=== PATIENT | female | born 1935 | race Two or more races ===

== ENCOUNTER → 2017-01-09 | Outpatient (REF) | payer MEDICARE, OTHER | LOC: M LAB REF 13:22 | PROVIDERS: ATTEND Nurse Practitioner Adult Health | DX: I48.2 Chronic atrial fibrillation (principal) ==

== ENCOUNTER → 2017-06-26 | Outpatient (CLI) | payer MEDICARE, OTHER | LOC: M WUC 11:50 | DX: S60.222A Contusion of left hand, initial encounter (principal); X58.XXXA Exposure to other specified factors, initial encounter; Y92.89 Other specified places as the place of occurrence of the external cause; M19.042 Primary osteoarthritis, left hand | CPT/HCPCS: 73110 ==

== ENCOUNTER → 2017-08-27 | Outpatient (REF) | payer MEDICARE, OTHER ==
[2017-08-27 13:06] LABS: PHOSPHORUS LEVEL 2.8 MG/DL (2.5-4.9)
[2017-08-27 14:00] LABS: DIGOXIN LEVEL 2.9 NG/ML (0.5-2.0)
== END ==
LOC: M LAB REF 12:03
DX: I50.32 Chronic diastolic (congestive) heart failure (principal); I48.2 Chronic atrial fibrillation; Z79.899 Other long term (current) drug therapy
CPT/HCPCS: 80162

== ENCOUNTER 2018-01-09 02:37 | Inpatient (IN) | payer MEDICARE, OTHER ==
[2018-01-09] MEDS: ACETAMINOPHEN 325 MG TAB PO (04:21)
[2018-01-09 06:37] LABS: BASO % 0.4 % (0.0-1.0); EOS # 0.2 10^3/uL (0.0-0.50); EOS % 1.6 % (0.0-3.0); HEMATOCRIT 37.2 % (36.0-47.0); HEMOGLOBIN 12.6 g/dl (12.0-15.5); IMMATURE GRANULOCYTE % 0.5 % (0-3.0); LYMPH # 1.1 10^3/uL (1.5-4.5); LYMPH % 10.3 % (24.0-44.0); MEAN CORPUSCULAR HGB CONC 33.9 g/dl (32.0-36.5); MEAN CORPUSCULAR VOLUME 97.4 fl (80.0-96.0); MONO # 0.9 10^3/uL (0.0-0.8); MONO % 8.2 % (0.0-5.0); NEUTROPHILS # 8.2 10^3/uL (1.8-7.7); PLATELET COUNT, AUTOMATED 223 10^3/uL (150-450); RED BLOOD COUNT 3.82 10^6/uL (4.00-5.40); RED CELL DISTRIBUTION WIDTH 13.2 % (11.5-14.5); WHITE BLOOD COUNT 10.3 10^3/uL (4.0-10.0)
[2018-01-09 06:50] LABS: ANION GAP 8 MEQ/L (8-16); BLOOD UREA NITROGEN 23 MG/DL (7-18); CALCIUM LEVEL 8.8 MG/DL (8.8-10.2); CARBON DIOXIDE LEVEL 25 MEQ/L (21-32); CHLORIDE LEVEL 108 MEQ/L (98-107); CREATININE FOR GFR 1.12 MG/DL (0.55-1.30); GLOMERULAR FILTRATION RATE 49.6 (>32); GLUCOSE, FASTING 129 MG/DL (70-100); POTASSIUM SERUM 4.4 MEQ/L (3.5-5.1); SODIUM LEVEL 141 MEQ/L (136-145)
[2018-01-09 06:51] LABS: INR 3.43; PROTHROMBIN TIME 35.3 SECONDS (12.1-14.4)
[2018-01-09 06:52] LABS: PARTIAL THROMBOPLASTIN TIME 68.9 SECONDS (25.4-37.6)
[2018-01-09] MEDS ORDERED: ONDANSETRON 4MG/2ML VIAL (J2405) IV (08:30)
[2018-01-09] MEDS ORDERED: IPRATROPIUM 0.5MG/ALBUTEROL 2.5MG INH SOL UD 3ML (DUONEB)(J7620) NEB (08:30)
[2018-01-09] MEDS: NS 1,000 ML IV (10:33)
[2018-01-09] MEDS: METOPROLOL SUCC (TopROL XL) 50MG **XL** TAB PO (10:34)
[2018-01-09] MEDS: PHYTONADIONE 5 MG TAB PO ×2 (10:34→16:37)
[2018-01-09] MEDS: DIGOXIN 0.25 MG TAB PO (10:34)
[2018-01-09] MEDS: FUROSEMIDE 40 MG TAB PO (10:35)
[2018-01-09] MEDS: OMEPRAZOLE 20 MG CAP PO (10:35)
[2018-01-09] MEDS: PERCOCET 5MG/325MG TAB PO ×2 (10:36→19:05)
[2018-01-09] MEDS: MAGNESIUM CHLORIDE 64 MG TABCR (SLO MAG) PO ×2 (11:10→20:39)
[2018-01-09] MEDS: BRIMONIDINE 0.15% OPHTH SOLN 5 ML OU ×2 (11:10→20:39)
[2018-01-09 12:12] LABS: ABO/RH TYPE MANUAL 1 1
[2018-01-09 16:14] LABS: INR 2.28; PROTHROMBIN TIME 25.6 SECONDS (12.1-14.4)
[2018-01-09 16:15] LABS: PARTIAL THROMBOPLASTIN TIME 53.5 SECONDS (25.4-37.6)
[2018-01-09] MEDS: HEPARIN DRIP 25,000 UNITS in APPROPRIATE DILUENT 1 EA IV (16:38)
[2018-01-09] MEDS: MORPHINE 4 MG/ML 1ML VIAL/SYRINGE (J2270) IV (18:23)
[2018-01-09] MEDS: LISINOPRIL 5 MG TAB PO (20:39)
[2018-01-09] MEDS: SIMVASTATIN 40 MG TAB PO (20:39)
[2018-01-10] MEDS: NS 1,000 ML IV
[2018-01-10 00:04] LABS: PARTIAL THROMBOPLASTIN TIME > 240.0 SECONDS (25.4-37.6)
[2018-01-10] MEDS: PERCOCET 5MG/325MG TAB PO ×2 (05:38→14:23)
[2018-01-10 06:05] LABS: HEMATOCRIT 34.2 % (36.0-47.0); HEMOGLOBIN 11.2 g/dl (12.0-15.5); MEAN CORPUSCULAR HEMOGLOBIN 32.2 pg (27.0-33.0); MEAN CORPUSCULAR HGB CONC 32.7 g/dl (32.0-36.5); MEAN CORPUSCULAR VOLUME 98.3 fl (80.0-96.0); PLATELET COUNT, AUTOMATED 194 10^3/uL (150-450); RED BLOOD COUNT 3.48 10^6/uL (4.00-5.40); RED CELL DISTRIBUTION WIDTH 13.1 % (11.5-14.5); WHITE BLOOD COUNT 7.1 10^3/uL (4.0-10.0)
[2018-01-10 06:16] LABS: INR 1.73; PROTHROMBIN TIME 20.5 SECONDS (12.1-14.4)
[2018-01-10 06:18] LABS: ALBUMIN 3.3 GM/DL (3.2-5.2); ANION GAP 7 MEQ/L (8-16); BLOOD UREA NITROGEN 19 MG/DL (7-18); CALCIUM LEVEL 8.9 MG/DL (8.8-10.2); CARBON DIOXIDE LEVEL 28 MEQ/L (21-32); CHLORIDE LEVEL 106 MEQ/L (98-107); CREATININE FOR GFR 1.08 MG/DL (0.55-1.30); GLOMERULAR FILTRATION RATE 51.7 (>32); GLUCOSE, FASTING 126 MG/DL (70-100); PHOSPHORUS LEVEL 2.5 MG/DL (2.5-4.9); POTASSIUM SERUM 3.8 MEQ/L (3.5-5.1); SODIUM LEVEL 141 MEQ/L (136-145)
[2018-01-10 07:18] LABS: PARTIAL THROMBOPLASTIN TIME 140.7 SECONDS (25.4-37.6)
[2018-01-10] MEDS: METOPROLOL SUCC (TopROL XL) 50MG **XL** TAB PO (08:32)
[2018-01-10] MEDS: DIGOXIN 0.25 MG TAB PO (08:32)
[2018-01-10] MEDS: OMEPRAZOLE 20 MG CAP PO (08:32)
[2018-01-10] MEDS: BRIMONIDINE 0.15% OPHTH SOLN 5 ML OU ×2 (08:33→21:54)
[2018-01-10] MEDS: FUROSEMIDE 40 MG TAB PO (08:33)
[2018-01-10] MEDS: MAGNESIUM CHLORIDE 64 MG TABCR (SLO MAG) PO ×2 (10:03→21:51)
[2018-01-10 14:47] LABS: PARTIAL THROMBOPLASTIN TIME 73.3 SECONDS (25.4-37.6)
[2018-01-10] MEDS: LISINOPRIL 5 MG TAB PO (21:54)
[2018-01-10] MEDS: SIMVASTATIN 40 MG TAB PO (21:54)
[2018-01-10 21:57] LABS: PARTIAL THROMBOPLASTIN TIME 74.1 SECONDS (25.4-37.6)
[2018-01-10] MEDS: HEPARIN DRIP 25,000 UNITS in APPROPRIATE DILUENT 1 EA IV (22:40)
[2018-01-11] MEDS: PERCOCET 5MG/325MG TAB PO ×3 (03:52→21:36)
[2018-01-11 06:17] LABS: HEMOGLOBIN 10.5 g/dl (12.0-15.5); MEAN CORPUSCULAR HEMOGLOBIN 32.7 pg (27.0-33.0); MEAN CORPUSCULAR HGB CONC 33.9 g/dl (32.0-36.5); MEAN CORPUSCULAR VOLUME 96.6 fl (80.0-96.0); PLATELET COUNT, AUTOMATED 187 10^3/uL (150-450); RED BLOOD COUNT 3.21 10^6/uL (4.00-5.40); RED CELL DISTRIBUTION WIDTH 12.8 % (11.5-14.5); WHITE BLOOD COUNT 10.2 10^3/uL (4.0-10.0)
[2018-01-11 06:28] LABS: PROTHROMBIN TIME 16.4 SECONDS (12.1-14.4)
[2018-01-11 06:30] LABS: PARTIAL THROMBOPLASTIN TIME 73.6 SECONDS (25.4-37.6)
[2018-01-11 06:32] LABS: ANION GAP 9 MEQ/L (8-16); BLOOD UREA NITROGEN 20 MG/DL (7-18); CALCIUM LEVEL 8.9 MG/DL (8.8-10.2); CARBON DIOXIDE LEVEL 27 MEQ/L (21-32); CHLORIDE LEVEL 104 MEQ/L (98-107); CREATININE FOR GFR 1.19 MG/DL (0.55-1.30); GLOMERULAR FILTRATION RATE 46.2 (>32); GLUCOSE, FASTING 128 MG/DL (70-100); PHOSPHORUS LEVEL 2.6 MG/DL (2.5-4.9); POTASSIUM SERUM 3.8 MEQ/L (3.5-5.1); SODIUM LEVEL 140 MEQ/L (136-145)
[2018-01-11] MEDS: METOPROLOL SUCC (TopROL XL) 50MG **XL** TAB PO (09:29)
[2018-01-11] MEDS: OMEPRAZOLE 20 MG CAP PO (09:29)
[2018-01-11] MEDS: MAGNESIUM CHLORIDE 64 MG TABCR (SLO MAG) PO ×2 (09:29→21:35)
[2018-01-11] MEDS: FUROSEMIDE 40 MG TAB PO (09:30)
[2018-01-11] MEDS: DIGOXIN 0.25 MG TAB PO (09:31)
[2018-01-11] MEDS: BRIMONIDINE 0.15% OPHTH SOLN 5 ML OU ×2 (09:31→21:34)
[2018-01-11] MEDS: LISINOPRIL 5 MG TAB PO (21:34)
[2018-01-11] MEDS: SIMVASTATIN 40 MG TAB PO (21:34)
[2018-01-12 06:17] LABS: HEMATOCRIT 30.4 % (36.0-47.0); HEMOGLOBIN 10.2 g/dl (12.0-15.5); MEAN CORPUSCULAR HEMOGLOBIN 33.1 pg (27.0-33.0); MEAN CORPUSCULAR HGB CONC 33.6 g/dl (32.0-36.5); MEAN CORPUSCULAR VOLUME 98.7 fl (80.0-96.0); PLATELET COUNT, AUTOMATED 198 10^3/uL (150-450); RED BLOOD COUNT 3.08 10^6/uL (4.00-5.40)
[2018-01-12] MEDS: PERCOCET 5MG/325MG TAB PO (06:17)
[2018-01-12 06:31] LABS: INR 1.19; PROTHROMBIN TIME 15.3 SECONDS (12.1-14.4)
[2018-01-12 06:32] LABS: PARTIAL THROMBOPLASTIN TIME 77.5 SECONDS (25.4-37.6)
[2018-01-12 06:36] LABS: ALBUMIN 2.8 GM/DL (3.2-5.2); ANION GAP 6 MEQ/L (8-16); BLOOD UREA NITROGEN 26 MG/DL (7-18); CALCIUM LEVEL 8.9 MG/DL (8.8-10.2); CARBON DIOXIDE LEVEL 30 MEQ/L (21-32); CHLORIDE LEVEL 103 MEQ/L (98-107); CREATININE FOR GFR 1.37 MG/DL (0.55-1.30); GLOMERULAR FILTRATION RATE 39.3 (>32); GLUCOSE, FASTING 109 MG/DL (70-100); PHOSPHORUS LEVEL 3.7 MG/DL (2.5-4.9); POTASSIUM SERUM 4.3 MEQ/L (3.5-5.1); SODIUM LEVEL 139 MEQ/L (136-145)
[2018-01-12] MEDS ORDERED: BISACODYL 10 MG SUPP PR (08:00)
[2018-01-12] MEDS: BRIMONIDINE 0.15% OPHTH SOLN 5 ML OU ×2 (09:00→20:48)
[2018-01-12] MEDS: MOM 30ML SUSPENSION UDC PO (09:08)
[2018-01-12] MEDS: DOCUSATE SODIUM 100 MG CAP PO ×2 (09:09→20:47)
[2018-01-12] MEDS: DIGOXIN 0.25 MG TAB PO (09:09)
[2018-01-12] MEDS: FUROSEMIDE 40 MG TAB PO (09:10)
[2018-01-12] MEDS: OMEPRAZOLE 20 MG CAP PO (09:11)
[2018-01-12] MEDS: METOPROLOL SUCC (TopROL XL) 50MG **XL** TAB PO (09:11)
[2018-01-12] MEDS: MAGNESIUM CHLORIDE 64 MG TABCR (SLO MAG) PO ×2 (09:11→20:48)
[2018-01-12] MEDS: ACETAMINOPHEN TAB 650MG DOSE (2X325MG) PO (14:05)
[2018-01-12] MEDS: HEPARIN DRIP 25,000 UNITS in APPROPRIATE DILUENT 1 EA IV (14:07)
[2018-01-12] MEDS: SIMVASTATIN 40 MG TAB PO (20:47)
[2018-01-12] MEDS: LISINOPRIL 5 MG TAB PO (20:51)
[2018-01-13] MEDS: PERCOCET 5MG/325MG TAB PO ×2 (00:33→20:51)
[2018-01-13 06:08] LABS: HEMATOCRIT 29.4 % (36.0-47.0); HEMOGLOBIN 9.9 g/dl (12.0-15.5); MEAN CORPUSCULAR HEMOGLOBIN 32.5 pg (27.0-33.0); MEAN CORPUSCULAR HGB CONC 33.7 g/dl (32.0-36.5); MEAN CORPUSCULAR VOLUME 96.4 fl (80.0-96.0); PLATELET COUNT, AUTOMATED 220 10^3/uL (150-450); RED BLOOD COUNT 3.05 10^6/uL (4.00-5.40); RED CELL DISTRIBUTION WIDTH 12.8 % (11.5-14.5); WHITE BLOOD COUNT 8.1 10^3/uL (4.0-10.0)
[2018-01-13 06:37] LABS: ALBUMIN 2.8 GM/DL (3.2-5.2); ANION GAP 8 MEQ/L (8-16); BLOOD UREA NITROGEN 24 MG/DL (7-18); CALCIUM LEVEL 8.7 MG/DL (8.8-10.2); CARBON DIOXIDE LEVEL 28 MEQ/L (21-32); CHLORIDE LEVEL 104 MEQ/L (98-107); CREATININE FOR GFR 1.13 MG/DL (0.55-1.30); GLOMERULAR FILTRATION RATE 49.1 (>32); GLUCOSE, FASTING 88 MG/DL (70-100); PHOSPHORUS LEVEL 2.8 MG/DL (2.5-4.9); POTASSIUM SERUM 4.2 MEQ/L (3.5-5.1); SODIUM LEVEL 140 MEQ/L (136-145)
[2018-01-13 06:44] LABS: INR 1.18; PROTHROMBIN TIME 15.1 SECONDS (12.1-14.4)
[2018-01-13] MEDS: HEPARIN SOD (PORCINE) 5000 UNITS/ML VIAL IV (07:34)
[2018-01-13] MEDS: DIGOXIN 0.25 MG TAB PO (09:05)
[2018-01-13] MEDS: FUROSEMIDE 40 MG TAB PO (09:06)
[2018-01-13] MEDS: OMEPRAZOLE 20 MG CAP PO (09:06)
[2018-01-13] MEDS: METOPROLOL SUCC (TopROL XL) 50MG **XL** TAB PO (09:06)
[2018-01-13] MEDS: DOCUSATE SODIUM 100 MG CAP PO ×2 (09:06→20:50)
[2018-01-13] MEDS: BRIMONIDINE 0.15% OPHTH SOLN 5 ML OU ×2 (09:07→20:51)
[2018-01-13] MEDS: MAGNESIUM CHLORIDE 64 MG TABCR (SLO MAG) PO ×2 (09:07→20:51)
[2018-01-13 13:54] LABS: INR 1.15; PROTHROMBIN TIME 14.9 SECONDS (12.1-14.4)
[2018-01-13] MEDS: ENOXAPARIN 100MG/1ML SYRINGE (J1650) SC (17:02)
[2018-01-13] MEDS: SIMVASTATIN 40 MG TAB PO (20:50)
[2018-01-13] MEDS: LISINOPRIL 5 MG TAB PO (20:50)
[2018-01-14] MEDS: ENOXAPARIN 100MG/1ML SYRINGE (J1650) SC ×2 (05:01→15:11)
[2018-01-14 06:31] LABS: HEMATOCRIT 31.5 % (36.0-47.0); HEMOGLOBIN 10.6 g/dl (12.0-15.5); MEAN CORPUSCULAR HEMOGLOBIN 32.3 pg (27.0-33.0); MEAN CORPUSCULAR HGB CONC 33.7 g/dl (32.0-36.5); PLATELET COUNT, AUTOMATED 216 10^3/uL (150-450); RED BLOOD COUNT 3.28 10^6/uL (4.00-5.40); RED CELL DISTRIBUTION WIDTH 12.7 % (11.5-14.5); WHITE BLOOD COUNT 8.2 10^3/uL (4.0-10.0)
[2018-01-14 06:49] LABS: ALBUMIN 2.9 GM/DL (3.2-5.2); ANION GAP 10 MEQ/L (8-16); BLOOD UREA NITROGEN 20 MG/DL (7-18); CARBON DIOXIDE LEVEL 27 MEQ/L (21-32); CHLORIDE LEVEL 104 MEQ/L (98-107); CREATININE FOR GFR 1.01 MG/DL (0.55-1.30); GLOMERULAR FILTRATION RATE 55.9 (>32); GLUCOSE, FASTING 94 MG/DL (70-100); PHOSPHORUS LEVEL 2.9 MG/DL (2.5-4.9); POTASSIUM SERUM 4.1 MEQ/L (3.5-5.1); SODIUM LEVEL 141 MEQ/L (136-145)
[2018-01-14 06:51] LABS: INR 1.16
[2018-01-14] MEDS: METOPROLOL SUCC (TopROL XL) 50MG **XL** TAB PO (08:44)
[2018-01-14] MEDS: DOCUSATE SODIUM 100 MG CAP PO ×2 (08:45→21:42)
[2018-01-14] MEDS: FUROSEMIDE 40 MG TAB PO (08:45)
[2018-01-14] MEDS: DIGOXIN 0.25 MG TAB PO (08:45)
[2018-01-14] MEDS: OMEPRAZOLE 20 MG CAP PO (08:45)
[2018-01-14] MEDS: MAGNESIUM CHLORIDE 64 MG TABCR (SLO MAG) PO ×2 (08:46→21:43)
[2018-01-14] MEDS: BRIMONIDINE 0.15% OPHTH SOLN 5 ML OU ×2 (08:46→21:46)
[2018-01-14] MEDS: SIMVASTATIN 40 MG TAB PO (21:42)
[2018-01-14] MEDS: LISINOPRIL 5 MG TAB PO (21:42)
[2018-01-14] MEDS: PERCOCET 5MG/325MG TAB PO (21:43)
[2018-01-14] MEDS: MOM 30ML SUSPENSION UDC PO (21:43)
[2018-01-15] MEDS: ENOXAPARIN 100MG/1ML SYRINGE (J1650) SC ×2 (04:25→16:32)
[2018-01-15 06:40] LABS: HEMATOCRIT 32.9 % (36.0-47.0); HEMOGLOBIN 10.8 g/dl (12.0-15.5); MEAN CORPUSCULAR HEMOGLOBIN 32.1 pg (27.0-33.0); MEAN CORPUSCULAR HGB CONC 32.8 g/dl (32.0-36.5); MEAN CORPUSCULAR VOLUME 97.9 fl (80.0-96.0); PLATELET COUNT, AUTOMATED 229 10^3/uL (150-450); RED BLOOD COUNT 3.36 10^6/uL (4.00-5.40); RED CELL DISTRIBUTION WIDTH 12.6 % (11.5-14.5); WHITE BLOOD COUNT 9.1 10^3/uL (4.0-10.0)
[2018-01-15 06:49] LABS: INR 1.22; PROTHROMBIN TIME 15.6 SECONDS (12.1-14.4)
[2018-01-15 06:55] LABS: ALBUMIN 2.8 GM/DL (3.2-5.2); ANION GAP 9 MEQ/L (8-16); BLOOD UREA NITROGEN 22 MG/DL (7-18); CALCIUM LEVEL 9.6 MG/DL (8.8-10.2); CARBON DIOXIDE LEVEL 28 MEQ/L (21-32); CHLORIDE LEVEL 103 MEQ/L (98-107); CREATININE FOR GFR 1.09 MG/DL (0.55-1.30); GLOMERULAR FILTRATION RATE 51.2 (>32); GLUCOSE, FASTING 103 MG/DL (70-100); PHOSPHORUS LEVEL 3.1 MG/DL (2.5-4.9); SODIUM LEVEL 140 MEQ/L (136-145)
[2018-01-15] MEDS: MORPHINE SULFATE ORAL SOLN 10 MG/5 ML UD PO (07:24)
[2018-01-15] MEDS: METOPROLOL SUCC (TopROL XL) 50MG **XL** TAB PO (09:01)
[2018-01-15] MEDS: OMEPRAZOLE 20 MG CAP PO (09:01)
[2018-01-15] MEDS: DOCUSATE SODIUM 100 MG CAP PO ×2 (09:01→20:58)
[2018-01-15] MEDS: BRIMONIDINE 0.15% OPHTH SOLN 5 ML OU ×2 (09:02→20:58)
[2018-01-15] MEDS: DIGOXIN 0.25 MG TAB PO (09:02)
[2018-01-15] MEDS: MAGNESIUM CHLORIDE 64 MG TABCR (SLO MAG) PO ×2 (09:02→20:58)
[2018-01-15] MEDS: FUROSEMIDE 40 MG TAB PO (09:04)
[2018-01-15] MEDS: SIMVASTATIN 40 MG TAB PO (20:58)
[2018-01-15] MEDS: LISINOPRIL 5 MG TAB PO (21:00)
[2018-01-16] MEDS: ENOXAPARIN 100MG/1ML SYRINGE (J1650) SC (04:14)
[2018-01-16 06:28] LABS: HEMATOCRIT 31.3 % (36.0-47.0); HEMOGLOBIN 10.4 g/dl (12.0-15.5); MEAN CORPUSCULAR HEMOGLOBIN 32.5 pg (27.0-33.0); MEAN CORPUSCULAR HGB CONC 33.2 g/dl (32.0-36.5); MEAN CORPUSCULAR VOLUME 97.8 fl (80.0-96.0); PLATELET COUNT, AUTOMATED 235 10^3/uL (150-450); RED CELL DISTRIBUTION WIDTH 12.6 % (11.5-14.5); WHITE BLOOD COUNT 8.9 10^3/uL (4.0-10.0)
[2018-01-16 06:36] LABS: PROTHROMBIN TIME 15.4 SECONDS (12.1-14.4)
[2018-01-16 06:41] LABS: ALBUMIN 2.6 GM/DL (3.2-5.2); ANION GAP 8 MEQ/L (8-16); BLOOD UREA NITROGEN 25 MG/DL (7-18); CALCIUM LEVEL 9.4 MG/DL (8.8-10.2); CARBON DIOXIDE LEVEL 26 MEQ/L (21-32); CHLORIDE LEVEL 104 MEQ/L (98-107); CREATININE FOR GFR 1.09 MG/DL (0.55-1.30); GLOMERULAR FILTRATION RATE 51.2 (>32); GLUCOSE, FASTING 104 MG/DL (70-100); PHOSPHORUS LEVEL 3.3 MG/DL (2.5-4.9); POTASSIUM SERUM 4.1 MEQ/L (3.5-5.1); SODIUM LEVEL 138 MEQ/L (136-145)
[2018-01-16] MEDS: METOPROLOL SUCC (TopROL XL) 50MG **XL** TAB PO (08:00)
[2018-01-16] MEDS: FUROSEMIDE 40 MG TAB PO (08:01)
[2018-01-16] MEDS: DIGOXIN 0.25 MG TAB PO (08:01)
[2018-01-16] MEDS: DOCUSATE SODIUM 100 MG CAP PO (08:01)
[2018-01-16] MEDS: MAGNESIUM CHLORIDE 64 MG TABCR (SLO MAG) PO (08:01)
[2018-01-16] MEDS: OMEPRAZOLE 20 MG CAP PO (08:01)
[2018-01-16] MEDS: BRIMONIDINE 0.15% OPHTH SOLN 5 ML OU (08:02)
== END 2018-01-16 11:32 | DRG 563 ==
LOC: M ED 02:37 → M ED INP 08:27 → M MSPAV 09:35
DX: S82.852A Displaced trimalleolar fracture of left lower leg, initial encounter for closed fracture (principal); I50.22 Chronic systolic (congestive) heart failure; I48.2 Chronic atrial fibrillation; I11.0 Hypertensive heart disease with heart failure; Z95.2 Presence of prosthetic heart valve; H40.9 Unspecified glaucoma; W18.09XA Striking against other object with subsequent fall, initial encounter; Y92.009 Unspecified place in unspecified non-institutional (private) residence as the place of occurrence of the external cause; Z79.82 Long term (current) use of aspirin; Z79.899 Other long term (current) drug therapy; Z88.5 Allergy status to narcotic agent; Z95.0 Presence of cardiac pacemaker; Z79.01 Long term (current) use of anticoagulants; K21.9 Gastro-esophageal reflux disease without esophagitis

== ENCOUNTER 2018-01-22 13:02 | Inpatient (IN) | payer MEDICARE, OTHER ==
[2018-01-22 14:15] LABS: BASO # 0.1 10^3/uL (0.0-0.2); BASO % 0.5 % (0.0-1.0); EOS # 0.3 10^3/uL (0.0-0.50); EOS % 2.7 % (0.0-3.0); HEMATOCRIT 31.8 % (36.0-47.0); HEMOGLOBIN 10.4 g/dl (12.0-15.5); IMMATURE GRANULOCYTE % 1.3 % (0-3.0); LYMPH # 1.5 10^3/uL (1.5-4.5); LYMPH % 15.6 % (24.0-44.0); MEAN CORPUSCULAR HEMOGLOBIN 31.9 pg (27.0-33.0); MEAN CORPUSCULAR HGB CONC 32.7 g/dl (32.0-36.5); MEAN CORPUSCULAR VOLUME 97.5 fl (80.0-96.0); MONO # 0.9 10^3/uL (0.0-0.8); NEUTROPHILS # 6.8 10^3/uL (1.8-7.7); NEUTROPHILS % 70.9 % (36.0-66.0); PLATELET COUNT, AUTOMATED 392 10^3/uL (150-450); RED BLOOD COUNT 3.26 10^6/uL (4.00-5.40); RED CELL DISTRIBUTION WIDTH 12.5 % (11.5-14.5); WHITE BLOOD COUNT 9.6 10^3/uL (4.0-10.0)
[2018-01-22 14:27] LABS: INR 1.09; PROTHROMBIN TIME 14.3 SECONDS (12.1-14.4)
[2018-01-22 14:28] LABS: PARTIAL THROMBOPLASTIN TIME 43.1 SECONDS (25.4-37.6)
[2018-01-22 14:36] LABS: ALBUMIN/GLOBULIN RATIO 0.73 (1.00-1.93); ALKALINE PHOSPHATASE 259 U/L (45-117); ALT/SGPT 38 U/L (12-78); ANION GAP 8 MEQ/L (8-16); AST/SGOT 37 U/L (7-37); BILIRUBIN,TOTAL 0.5 MG/DL (0.2-1.0); BLOOD UREA NITROGEN 19 MG/DL (7-18); CALCIUM LEVEL 8.9 MG/DL (8.8-10.2); CARBON DIOXIDE LEVEL 27 MEQ/L (21-32); CHLORIDE LEVEL 106 MEQ/L (98-107); GLOMERULAR FILTRATION RATE 50.6 (>32); GLUCOSE, FASTING 106 MG/DL (70-100); MAGNESIUM LEVEL 1.6 MG/DL (1.8-2.4); POTASSIUM SERUM 4.8 MEQ/L (3.5-5.1); SODIUM LEVEL 141 MEQ/L (136-145); TOTAL PROTEIN 7.1 GM/DL (6.4-8.2)
[2018-01-22] MEDS ORDERED: HEPARIN SOD (PORCINE) 5000 UNITS/ML VIAL IV (14:45)
[2018-01-22 15:31] LABS: DIGOXIN LEVEL 2.5 NG/ML (0.5-2.0)
[2018-01-22] MEDS ORDERED: PERCOCET 5MG/325MG TAB PO (16:00)
[2018-01-22] MEDS: METOPROLOL SUCC (TopROL XL) 50MG **XL** TAB PO (16:27)
[2018-01-22] MEDS: PERCOCET 5MG/325MG TAB PO ×2 (16:29→21:19)
[2018-01-22] MEDS: HEPARIN DRIP 25,000 UNITS in APPROPRIATE DILUENT 1 EA IV (16:36)
[2018-01-22] MEDS: SIMVASTATIN 40 MG TAB PO (21:18)
[2018-01-22] MEDS: BRIMONIDINE 0.15% OPHTH SOLN 5 ML OU (21:18)
[2018-01-22] MEDS: MAGNESIUM CHLORIDE 64 MG TABCR (SLO MAG) PO (21:18)
[2018-01-22 22:55] LABS: PARTIAL THROMBOPLASTIN TIME 105.9 SECONDS (25.4-37.6)
[2018-01-23 05:10] LABS: HEMATOCRIT 30.6 % (36.0-47.0); HEMOGLOBIN 9.8 g/dl (12.0-15.5); MEAN CORPUSCULAR HEMOGLOBIN 31.8 pg (27.0-33.0); MEAN CORPUSCULAR VOLUME 99.4 fl (80.0-96.0); PLATELET COUNT, AUTOMATED 372 10^3/uL (150-450); RED BLOOD COUNT 3.08 10^6/uL (4.00-5.40); RED CELL DISTRIBUTION WIDTH 12.5 % (11.5-14.5); WHITE BLOOD COUNT 8.1 10^3/uL (4.0-10.0)
[2018-01-23 05:28] LABS: PARTIAL THROMBOPLASTIN TIME 136.7 SECONDS (25.4-37.6)
[2018-01-23 05:42] LABS: ANION GAP 9 MEQ/L (8-16); BLOOD UREA NITROGEN 20 MG/DL (7-18); CARBON DIOXIDE LEVEL 26 MEQ/L (21-32); CHLORIDE LEVEL 105 MEQ/L (98-107); CREATININE FOR GFR 1.13 MG/DL (0.55-1.30); DIGOXIN LEVEL 1.8 NG/ML (0.5-2.0); GLOMERULAR FILTRATION RATE 49.1 (>32); GLUCOSE, FASTING 104 MG/DL (70-100); MAGNESIUM LEVEL 1.8 MG/DL (1.8-2.4); POTASSIUM SERUM 4.7 MEQ/L (3.5-5.1); SODIUM LEVEL 140 MEQ/L (136-145)
[2018-01-23] MEDS: OMEPRAZOLE 20 MG CAP PO (07:44)
[2018-01-23] MEDS: MAGNESIUM CHLORIDE 64 MG TABCR (SLO MAG) PO ×2 (07:44→20:47)
[2018-01-23] MEDS: METOPROLOL SUCC (TopROL XL) 50MG **XL** TAB PO ×2 (08:17→08:18)
[2018-01-23] MEDS: BRIMONIDINE 0.15% OPHTH SOLN 5 ML OU ×2 (08:17→20:47)
[2018-01-23] MEDS ORDERED: ENTER DRUG NAME HERE (PATIENT'S OWN MED) OU (09:00)
[2018-01-23] MEDS ORDERED: DIGOXIN 0.25 MG TAB PO (09:00)
[2018-01-23] MEDS ORDERED: fentaNYL 100 MCG/2 ML INJECTION (J3010) As Ordered (11:12)
[2018-01-23] MEDS ORDERED: MIDAZOLAM INJ 2 MG/2 ML VIAL (J2250) As Ordered ×2 (11:12→12:18)
[2018-01-23] MEDS: MIDAZOLAM INJ 2 MG/2 ML VIAL (J2250) IV (11:19)
[2018-01-23] MEDS: fentaNYL 100 MCG/2 ML INJECTION (J3010) IV (11:20)
[2018-01-23] MEDS ORDERED: dexameTHASONE 4 MG/ML 1ML VIAL (J1100) As Ordered (12:18)
[2018-01-23] MEDS ORDERED: HYDROmorphone HCL 2 MG/ML 1ML VIAL (J1170) As Ordered (12:18)
[2018-01-23] MEDS ORDERED: LIDOCAINE 2% INJ 100 MG/5 ML SDV (FOR ANES.) As Ordered (12:18)
[2018-01-23] MEDS ORDERED: fentaNYL 250 MCG/5 ML INJECTION (J3010) As Ordered (12:18)
[2018-01-23] MEDS ORDERED: ROCURONIUM BROMIDE 50 MG/5 ML VIAL As Ordered ×2 (12:18→13:44)
[2018-01-23] MEDS ORDERED: ONDANSETRON 4MG/2ML VIAL (J2405) As Ordered (12:18)
[2018-01-23] MEDS ORDERED: PROPOFOL 200 MG/20 ML VIAL As Ordered (12:18)
[2018-01-23] MEDS ORDERED: PHENYLEPHRINE INJ 10MG/ML VIAL (J2370) As Ordered (12:18)
[2018-01-23] MEDS: ceFAZolin 1GM INJ (J0690 PER 500MG) As Ordered (12:34)
[2018-01-23] MEDS ORDERED: LABETALOL HCL 100 MG/20 ML VIAL As Ordered (13:06)
[2018-01-23] MEDS ORDERED: GLYCOPYRROLATE INJ 0.2 MG/ML 2 ML VIAL As Ordered ×2 (13:47)
[2018-01-23] MEDS ORDERED: NEOSTIGMINE 10 MG/10 ML VIAL (J2710) As Ordered (13:47)
[2018-01-23] MEDS ORDERED: LIDOCAINE 1% MDV 20ML VIAL (14:13)
[2018-01-23] MEDS ORDERED: ROPIvacaine 0.5% 30 ML INJECTION (J2795 PER 1MG) (14:13)
[2018-01-23] MEDS ORDERED: dexameTHASONE 10 MG/1 ML VIAL PRES.FREE (J1100) (14:13)
[2018-01-23] MEDS ORDERED: fentaNYL 100 MCG/2 ML INJECTION (J3010) IV (15:45)
[2018-01-23] MEDS ORDERED: ONDANSETRON 4MG/2ML VIAL (J2405) IV (15:45)
[2018-01-23] MEDS: LR 1,000 ML IV (17:23)
[2018-01-23 17:25] LABS: PARTIAL THROMBOPLASTIN TIME 37.1 SECONDS (25.4-37.6)
[2018-01-23] MEDS ORDERED: HEPARIN SOD (PORCINE) 5000 UNITS/ML VIAL As Ordered (18:25)
[2018-01-23] MEDS: WARFARIN SOD 3 MG TAB PO (18:31)
[2018-01-23] MEDS: HEPARIN DRIP 25,000 UNITS in APPROPRIATE DILUENT 1 EA IV (18:31)
[2018-01-23] MEDS ORDERED: HEPARIN SOD (PORCINE) 5000 UNITS/ML VIAL IV (19:45)
[2018-01-23] MEDS: SIMVASTATIN 40 MG TAB PO (20:47)
[2018-01-24 00:07] LABS: PARTIAL THROMBOPLASTIN TIME > 240.0 SECONDS (25.4-37.6)
[2018-01-24] MEDS: PERCOCET 5MG/325MG TAB PO ×3 (02:59→13:15)
[2018-01-24 05:27] LABS: HEMATOCRIT 26.1 % (36.0-47.0); HEMOGLOBIN 8.7 g/dl (12.0-15.5); MEAN CORPUSCULAR HGB CONC 33.3 g/dl (32.0-36.5); PLATELET COUNT, AUTOMATED 318 10^3/uL (150-450); RED BLOOD COUNT 2.72 10^6/uL (4.00-5.40); RED CELL DISTRIBUTION WIDTH 12.3 % (11.5-14.5); WHITE BLOOD COUNT 9.5 10^3/uL (4.0-10.0)
[2018-01-24 05:38] LABS: INR 1.16; PROTHROMBIN TIME 14.9 SECONDS (12.1-14.4)
[2018-01-24 05:39] LABS: PARTIAL THROMBOPLASTIN TIME 52.6 SECONDS (25.4-37.6)
[2018-01-24 06:01] LABS: ANION GAP 8 MEQ/L (8-16); BLOOD UREA NITROGEN 23 MG/DL (7-18); CALCIUM LEVEL 8.7 MG/DL (8.8-10.2); CARBON DIOXIDE LEVEL 24 MEQ/L (21-32); CHLORIDE LEVEL 104 MEQ/L (98-107); DIGOXIN LEVEL 1.4 NG/ML (0.5-2.0); GLOMERULAR FILTRATION RATE 45.8 (>32); GLUCOSE, FASTING 119 MG/DL (70-100); MAGNESIUM LEVEL 1.8 MG/DL (1.8-2.4); POTASSIUM SERUM 5.1 MEQ/L (3.5-5.1); SODIUM LEVEL 136 MEQ/L (136-145)
[2018-01-24] MEDS: BRIMONIDINE 0.15% OPHTH SOLN 5 ML OU (09:00)
[2018-01-24] MEDS: ASPIRIN 81 MG ENTERIC TAB PO (09:21)
[2018-01-24] MEDS: OMEPRAZOLE 20 MG CAP PO (09:21)
[2018-01-24] MEDS: METOPROLOL SUCC (TopROL XL) 50MG **XL** TAB PO (09:22)
[2018-01-24] MEDS: DIGOXIN 0.125 MG TAB PO (09:22)
[2018-01-24] MEDS: MAGNESIUM CHLORIDE 64 MG TABCR (SLO MAG) PO (09:23)
[2018-01-24] MEDS: ENOXAPARIN 80 MG/0.8 ML SYRINGE (J1650) SC (09:25)
[2018-01-24 11:25] LABS: PARTIAL THROMBOPLASTIN TIME 47.5 SECONDS (25.4-37.6)
== END 2018-01-24 13:34 | disposition home or self-care (01) | DRG 493 ==
LOC: M MS5PR 13:02
PROC: 0SSG04Z Reposition Left Ankle Joint with Internal Fixation Device, Open Approach (ICD-10-PCS; principal; 2018-01-23 11:00)
DX: S82.852A Displaced trimalleolar fracture of left lower leg, initial encounter for closed fracture (principal); I50.30 Unspecified diastolic (congestive) heart failure; I48.2 Chronic atrial fibrillation; I11.0 Hypertensive heart disease with heart failure; E78.5 Hyperlipidemia, unspecified; H40.9 Unspecified glaucoma; K21.9 Gastro-esophageal reflux disease without esophagitis; E83.42 Hypomagnesemia; G47.33 Obstructive sleep apnea (adult) (pediatric); Z95.2 Presence of prosthetic heart valve; Z95.0 Presence of cardiac pacemaker; W01.0XXA Fall on same level from slipping, tripping and stumbling without subsequent striking against object, initial encounter; Y92.009 Unspecified place in unspecified non-institutional (private) residence as the place of occurrence of the external cause; Y93.01 Activity, walking, marching and hiking

== ENCOUNTER → 2018-01-27 | Outpatient (REF) | payer MEDICARE, SELFPAY, OTHER ==
[2018-01-27 12:15] LABS: HEMATOCRIT 29.2 % (36.0-47.0); HEMOGLOBIN 9.6 g/dl (12.0-15.5); MEAN CORPUSCULAR HEMOGLOBIN 32.4 pg (27.0-33.0); MEAN CORPUSCULAR HGB CONC 32.9 g/dl (32.0-36.5); MEAN CORPUSCULAR VOLUME 98.6 fl (80.0-96.0); PLATELET COUNT, AUTOMATED 414 10^3/uL (150-450); RED BLOOD COUNT 2.96 10^6/uL (4.00-5.40); RED CELL DISTRIBUTION WIDTH 12.7 % (11.5-14.5); WHITE BLOOD COUNT 7.6 10^3/uL (4.0-10.0)
[2018-01-27 12:23] LABS: ANION GAP 9 MEQ/L (8-16); BLOOD UREA NITROGEN 19 MG/DL (7-18); CALCIUM LEVEL 9.5 MG/DL (8.8-10.2); CARBON DIOXIDE LEVEL 26 MEQ/L (21-32); CHLORIDE LEVEL 106 MEQ/L (98-107); CREATININE FOR GFR 1.07 MG/DL (0.55-1.30); GLOMERULAR FILTRATION RATE 52.3 (>32); GLUCOSE, FASTING 118 MG/DL (70-100); POTASSIUM SERUM 4.5 MEQ/L (3.5-5.1); SODIUM LEVEL 141 MEQ/L (136-145)
== END ==
DX: D64.9 Anemia, unspecified (principal)
CPT/HCPCS: 83735

== ENCOUNTER → 2018-01-30 | Outpatient (REF) ==
[2018-01-30 17:30] LABS: HEMATOCRIT 31.1 % (36.0-47.0); HEMOGLOBIN 10.1 g/dl (12.0-15.5); MEAN CORPUSCULAR HEMOGLOBIN 32.4 pg (27.0-33.0); MEAN CORPUSCULAR HGB CONC 32.5 g/dl (32.0-36.5); MEAN CORPUSCULAR VOLUME 99.7 fl (80.0-96.0); PLATELET COUNT, AUTOMATED 346 10^3/uL (150-450); RED BLOOD COUNT 3.12 10^6/uL (4.00-5.40); RED CELL DISTRIBUTION WIDTH 12.9 % (11.5-14.5); WHITE BLOOD COUNT 9.6 10^3/uL (4.0-10.0)
[2018-01-30 17:57] LABS: ANION GAP 7 MEQ/L (8-16); BLOOD UREA NITROGEN 23 MG/DL (7-18); CARBON DIOXIDE LEVEL 25 MEQ/L (21-32); CHLORIDE LEVEL 108 MEQ/L (98-107); CREATININE FOR GFR 1.16 MG/DL (0.55-1.30); GLOMERULAR FILTRATION RATE 47.6 (>32); GLUCOSE, FASTING 106 MG/DL (70-100); POTASSIUM SERUM 4.8 MEQ/L (3.5-5.1); SODIUM LEVEL 140 MEQ/L (136-145); URIC ACID 8.1 MG/DL (2.6-6.0)
== END ==
DX: M25.431 Effusion, right wrist (principal)

== ENCOUNTER → 2018-02-04 | Outpatient (REF) ==
[2018-02-04 09:53] LABS: HEMATOCRIT 32.4 % (36.0-47.0); HEMOGLOBIN 10.3 g/dl (12.0-15.5); MEAN CORPUSCULAR HEMOGLOBIN 31.4 pg (27.0-33.0); MEAN CORPUSCULAR HGB CONC 31.8 g/dl (32.0-36.5); MEAN CORPUSCULAR VOLUME 98.8 fl (80.0-96.0); PLATELET COUNT, AUTOMATED 278 10^3/uL (150-450); RED BLOOD COUNT 3.28 10^6/uL (4.00-5.40); RED CELL DISTRIBUTION WIDTH 13.1 % (11.5-14.5); WHITE BLOOD COUNT 10.1 10^3/uL (4.0-10.0)
[2018-02-04 10:14] LABS: ANION GAP 8 MEQ/L (8-16); BLOOD UREA NITROGEN 31 MG/DL (7-18); CARBON DIOXIDE LEVEL 26 MEQ/L (21-32); CHLORIDE LEVEL 109 MEQ/L (98-107); CREATININE FOR GFR 1.11 MG/DL (0.55-1.30); GLOMERULAR FILTRATION RATE 50.1 (>32); GLUCOSE, FASTING 76 MG/DL (70-100); MAGNESIUM LEVEL 1.8 MG/DL (1.8-2.4); POTASSIUM SERUM 4.3 MEQ/L (3.5-5.1); SODIUM LEVEL 143 MEQ/L (136-145)
== END ==
DX: D64.9 Anemia, unspecified (principal); E83.42 Hypomagnesemia

== ENCOUNTER → 2018-02-11 | Outpatient (REF) ==
[2018-02-11 09:32] LABS: HEMATOCRIT 32.8 % (36.0-47.0); HEMOGLOBIN 10.9 g/dl (12.0-15.5); MEAN CORPUSCULAR HEMOGLOBIN 32.3 pg (27.0-33.0); MEAN CORPUSCULAR HGB CONC 33.2 g/dl (32.0-36.5); MEAN CORPUSCULAR VOLUME 97.3 fl (80.0-96.0); PLATELET COUNT, AUTOMATED 198 10^3/uL (150-450); RED BLOOD COUNT 3.37 10^6/uL (4.00-5.40); WHITE BLOOD COUNT 7.4 10^3/uL (4.0-10.0)
[2018-02-11 09:46] LABS: ANION GAP 9 MEQ/L (8-16); BLOOD UREA NITROGEN 25 MG/DL (7-18); CALCIUM LEVEL 9.2 MG/DL (8.8-10.2); CARBON DIOXIDE LEVEL 25 MEQ/L (21-32); CHLORIDE LEVEL 108 MEQ/L (98-107); CREATININE FOR GFR 1.09 MG/DL (0.55-1.30); GLOMERULAR FILTRATION RATE 51.2 (>32); GLUCOSE, FASTING 90 MG/DL (70-100); MAGNESIUM LEVEL 1.8 MG/DL (1.8-2.4); POTASSIUM SERUM 4.4 MEQ/L (3.5-5.1); SODIUM LEVEL 142 MEQ/L (136-145)
[2018-02-12 15:58] LABS: URIC ACID 8.8 MG/DL (2.6-6.0)
== END ==
DX: D64.9 Anemia, unspecified (principal); E83.42 Hypomagnesemia

== ENCOUNTER → 2018-02-12 | Outpatient (REF) | DX: M10.9 Gout, unspecified (principal) ==

== ENCOUNTER → 2018-02-18 | Outpatient (REF) ==
[2018-02-18 09:58] LABS: HEMATOCRIT 36.1 % (36.0-47.0); MEAN CORPUSCULAR HEMOGLOBIN 32.3 pg (27.0-33.0); MEAN CORPUSCULAR HGB CONC 33.2 g/dl (32.0-36.5); PLATELET COUNT, AUTOMATED 181 10^3/uL (150-450); RED BLOOD COUNT 3.72 10^6/uL (4.00-5.40); RED CELL DISTRIBUTION WIDTH 13.1 % (11.5-14.5); WHITE BLOOD COUNT 5.7 10^3/uL (4.0-10.0)
[2018-02-18 10:34] LABS: BLOOD UREA NITROGEN 29 MG/DL (7-18); CREATININE FOR GFR 1.38 MG/DL (0.55-1.30); GLUCOSE, FASTING 87 MG/DL (70-100)
[2018-02-18 10:35] LABS: ANION GAP 10 MEQ/L (8-16); CALCIUM LEVEL 9.2 MG/DL (8.8-10.2); CARBON DIOXIDE LEVEL 23 MEQ/L (21-32); CHLORIDE LEVEL 112 MEQ/L (98-107); POTASSIUM SERUM 4.4 MEQ/L (3.5-5.1); SODIUM LEVEL 145 MEQ/L (136-145); URIC ACID 10.2 MG/DL (2.6-6.0)
== END ==
DX: D64.9 Anemia, unspecified (principal); E83.42 Hypomagnesemia; M25.531 Pain in right wrist

== ENCOUNTER → 2018-02-26 | Outpatient (REF) ==
[2018-02-26 08:13] LABS: HEMATOCRIT 35.4 % (36.0-47.0); HEMOGLOBIN 11.4 g/dl (12.0-15.5); MEAN CORPUSCULAR HEMOGLOBIN 30.8 pg (27.0-33.0); MEAN CORPUSCULAR HGB CONC 32.2 g/dl (32.0-36.5); MEAN CORPUSCULAR VOLUME 95.7 fl (80.0-96.0); PLATELET COUNT, AUTOMATED 191 10^3/uL (150-450); WHITE BLOOD COUNT 6.3 10^3/uL (4.0-10.0)
[2018-02-26 08:38] LABS: ANION GAP 11 MEQ/L (8-16); BLOOD UREA NITROGEN 24 MG/DL (7-18); CALCIUM LEVEL 9.1 MG/DL (8.8-10.2); CARBON DIOXIDE LEVEL 24 MEQ/L (21-32); CHLORIDE LEVEL 109 MEQ/L (98-107); CREATININE FOR GFR 1.17 MG/DL (0.55-1.30); GLOMERULAR FILTRATION RATE 47.1 (>32); GLUCOSE, FASTING 95 MG/DL (70-100); MAGNESIUM LEVEL 1.7 MG/DL (1.8-2.4); POTASSIUM SERUM 4.2 MEQ/L (3.5-5.1); SODIUM LEVEL 144 MEQ/L (136-145)
== END ==
DX: D64.9 Anemia, unspecified (principal); E83.42 Hypomagnesemia

== ENCOUNTER → 2018-02-28 | Outpatient (REF) ==
[2018-02-28 11:10] LABS: INR 2.16; PROTHROMBIN TIME 24.5 SECONDS (12.1-14.4)
== END ==
DX: I48.91 Unspecified atrial fibrillation (principal)

== ENCOUNTER → 2018-03-05 | Outpatient (REF) ==
[2018-03-05 10:27] LABS: INR 2.03; PROTHROMBIN TIME 23.3 SECONDS (12.1-14.4)
== END ==
DX: I48.91 Unspecified atrial fibrillation (principal)

== ENCOUNTER → 2018-03-19 | Outpatient (REF) ==
[2018-03-19 17:57] LABS: INR 1.94; PROTHROMBIN TIME 22.5 SECONDS (12.1-14.4)
== END ==
DX: I48.91 Unspecified atrial fibrillation (principal)

== ENCOUNTER → 2018-03-25 | Outpatient (REF) ==
[2018-03-25 10:27] LABS: HEMATOCRIT 33.1 % (36.0-47.0); HEMOGLOBIN 10.6 g/dl (12.0-15.5); MEAN CORPUSCULAR HEMOGLOBIN 29.8 pg (27.0-33.0); PLATELET COUNT, AUTOMATED 186 10^3/uL (150-450); RED BLOOD COUNT 3.56 10^6/uL (4.00-5.40); WHITE BLOOD COUNT 6.5 10^3/uL (4.0-10.0)
[2018-03-25 11:04] LABS: ANION GAP 9 MEQ/L (8-16); BLOOD UREA NITROGEN 26 MG/DL (7-18); CALCIUM LEVEL 8.8 MG/DL (8.8-10.2); CARBON DIOXIDE LEVEL 23 MEQ/L (21-32); CHLORIDE LEVEL 110 MEQ/L (98-107); GLOMERULAR FILTRATION RATE 56.4 (>32); GLUCOSE, FASTING 131 MG/DL (70-100); MAGNESIUM LEVEL 1.6 MG/DL (1.8-2.4); POTASSIUM SERUM 4.1 MEQ/L (3.5-5.1); SODIUM LEVEL 142 MEQ/L (136-145)
== END ==
DX: D64.9 Anemia, unspecified (principal); E83.42 Hypomagnesemia

== ENCOUNTER → 2018-04-29 | Outpatient (REF) ==
[2018-04-29 10:10] LABS: HEMATOCRIT 34.5 % (36.0-47.0); MEAN CORPUSCULAR HEMOGLOBIN 29.8 pg (27.0-33.0); MEAN CORPUSCULAR HGB CONC 31.9 g/dl (32.0-36.5); MEAN CORPUSCULAR VOLUME 93.5 fl (80.0-96.0); PLATELET COUNT, AUTOMATED 179 10^3/uL (150-450); RED BLOOD COUNT 3.69 10^6/uL (4.00-5.40); RED CELL DISTRIBUTION WIDTH 15.1 % (11.5-14.5); WHITE BLOOD COUNT 7.7 10^3/uL (4.0-10.0)
[2018-04-29 10:46] LABS: ANION GAP 9 MEQ/L (8-16); BLOOD UREA NITROGEN 52 MG/DL (7-18); CALCIUM LEVEL 9.4 MG/DL (8.8-10.2); CARBON DIOXIDE LEVEL 27 MEQ/L (21-32); CHLORIDE LEVEL 105 MEQ/L (98-107); CREATININE FOR GFR 1.05 MG/DL (0.55-1.30); GLOMERULAR FILTRATION RATE 53.3 (>32); GLUCOSE, FASTING 83 MG/DL (70-100); POTASSIUM SERUM 4.1 MEQ/L (3.5-5.1); SODIUM LEVEL 141 MEQ/L (136-145)
[2018-05-01 15:47] LABS: MAGNESIUM LEVEL 2.2 MG/DL (1.8-2.4)
== END ==
DX: D64.9 Anemia, unspecified (principal); E83.42 Hypomagnesemia

== ENCOUNTER → 2018-05-01 | Outpatient (REF) ==
[2018-05-01 12:36] LABS: ANION GAP 10 MEQ/L (8-16); BLOOD UREA NITROGEN 55 MG/DL (7-18); CALCIUM LEVEL 9.6 MG/DL (8.8-10.2); CARBON DIOXIDE LEVEL 25 MEQ/L (21-32); CHLORIDE LEVEL 106 MEQ/L (98-107); CREATININE FOR GFR 0.99 MG/DL (0.55-1.30); GLUCOSE, FASTING 87 MG/DL (70-100); POTASSIUM SERUM 4.1 MEQ/L (3.5-5.1); SODIUM LEVEL 141 MEQ/L (136-145)
== END ==
DX: I10 Essential (primary) hypertension (principal)

== ENCOUNTER → 2018-09-05 | Outpatient (REF) | payer MEDICARE, OTHER ==
[~2018-09-05] MED LIST: ALPH0.156 OU; ASPI1TAB PO; BIMA01SOL OU; COUM1TAB19 PO; DIGO0.25 PO; ELIQ5TAB PO; FURO40TA2 PO; LISI-542 PO; LOVE0.8I SC; MAGN64TASA PO; METO1TAB7 PO; OMEP20CA3 PO; OXYC1TAB23 PO; PERCOCET PO; WARF-58 PO; ZOCO40TA PO
[2018-09-05 14:00] LABS: INFLUENZA A AMPLIFICATION NEGATIVE (NEGATIVE); INFLUENZA B AMPLIFICATION NEGATIVE (NEGATIVE)
== END ==
LOC: M LAB REF 12:22
PROVIDERS: ATTEND Nurse Practitioner Adult Health
DX: J06.9 Acute upper respiratory infection, unspecified (principal)

== ENCOUNTER 2020-07-25 17:20 | Observation (INO) | payer MEDICARE, OTHER ==
[~2020-07-25] VITALS: Ht 162.6 cm; Wt 70.2 kg
[~2020-07-25 17:20] MED LIST changes: -ASPI1TAB PO; +ASPI81TA26 PO; -DIGO0.25 PO; +DIGO0.253 PO; -LISI-542 PO; +LISI-898 PO; +OMEP1CAP73 PO; -OMEP20CA3 PO
--- NOTE | 2020-07-25 18:16 | REP ---
INDICATION: Coronavirus workup. COMPARISON: 01/09/2018. TECHNIQUE: SINGLE PORTABLE AP VIEW OF THE CHEST WAS PERFORMED. FINDINGS: Infiltrates are seen in the right lower lung zone. The left lung demonstrates no definite infiltrate. There is cardiomegaly. There multiple sternal wires as well as a prosthetic heart valve and a 2 lead pacemaker. IMPRESSION: Infiltrate right lung base. <Electronically signed by Jimy To > 07/25/20 2170
[2020-07-25 18:41] LABS: BASO % 0.5 % (0.0-1.0); EOS # 0.1 10^3/uL (0.0-0.5); EOS % 0.8 % (0.0-3.0); HEMATOCRIT 43.8 % (36.0-47.0); HEMOGLOBIN 14.4 g/dl (12.0-15.5); LYMPH # 0.9 10^3/uL (1.5-5.0); LYMPH % 14.4 % (24.0-44.0); MEAN CORPUSCULAR HEMOGLOBIN 31.7 pg (27.0-33.0); MEAN CORPUSCULAR HGB CONC 32.9 g/dl (32.0-36.5); MEAN CORPUSCULAR VOLUME 96.5 fl (80.0-96.0); MONO # 0.4 10^3/uL (0.0-0.8); MONO % 5.8 % (0.0-5.0); NEUTROPHILS # 4.8 10^3/uL (1.5-8.5); NEUTROPHILS % 77.5 % (36.0-66.0); PLATELET COUNT, AUTOMATED 229 10^3/uL (150-450); RED BLOOD COUNT 4.54 10^6/uL (4.00-5.40); WHITE BLOOD COUNT 6.2 10^3/uL (4.0-10.0)
[2020-07-25 18:56] LABS: D-DIMER QUANT 1845.78 ng/ml (<500)
[2020-07-25] MEDS ORDERED: WARF-58 PO (19:42)
[2020-07-25] MEDS ORDERED: MAALOX 30 ML SUSP *UDC PO PRN (20:00)
[2020-07-25] MEDS ORDERED: ENOXAPARIN 100MG/1ML SYRINGE (J1650 PER 10MG) SC SCH (20:00)
[2020-07-25] MEDS ORDERED: ACETAMINOPHEN TAB 650MG DOSE (2X325MG) PO PRN (20:00)
[2020-07-25] MEDS ORDERED: DOXYCYCLINE HYCLATE 100 MG in D5W MINI-BAG PLUS 100 ML IV SCH (20:00)
[2020-07-25] MEDS ORDERED: MOM 30ML SUSPENSION UDC PO PRN (20:00)
[2020-07-25 20:08] LABS: INR 2.42; PROTHROMBIN TIME 26.9 SECONDS (12.5-14.3)
[2020-07-25] MEDS ORDERED: cefTRIAXone SOD 2 GM in D5W MINI-BAG PLUS 50 ML IV SCH (21:00)
[2020-07-25 21:11] LABS: ALBUMIN 2.9 GM/DL (3.2-5.2); BILIRUBIN,TOTAL 0.8 MG/DL (0.2-1.0); C REACTIVE PROTEIN QUANTITATIV 13.8 MG/DL (0.00-0.30); CALCIUM LEVEL 8.7 MG/DL (8.8-10.2); CK-MB VALUE MASS 1.1 NG/ML (<3.6); CREATININE FOR GFR 1.38 MG/DL (0.55-1.30); GLOMERULAR FILTRATION RATE 38.7 (>32); MAGNESIUM LEVEL 1.8 MG/DL (1.8-2.4); MB/CK RELATIVE INDEX 0.89 (< OR =4); POTASSIUM SERUM 3.9 MEQ/L (3.5-5.1); TOTAL PROTEIN 7.2 GM/DL (6.4-8.2); TROPONIN I 0.07 NG/ML (< 0.10)
--- NOTE | 2020-07-25 21:18 | ECGEPIP ---
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
--- NOTE | 2020-07-25 21:30 | HPEPDOC ---
[facility] Medical History & Physical Date of Admission Jul 25, 2020 Date of Service: Jul 25, 2020 Primary Care Physician: Jr Hall Collins Attending Physician: STEPHANIE PINEDA MD History and Physical TIME OF SERVICE: 9:05 PM CHIEF COMPLAINT: Cough HISTORY OF PRESENT ILLNESS: This 85-year-old female's is admitted to the hospital for treatment of Covid. Today she presented with complaints of coughing for a couple of days, and fever as high as 101.4. She denied having chills, nausea, vomiting, muscle aches, or shortness of breath. REVIEW OF SYSTEMS: 12 point review of systems negative except as listed in HPI PAST MEDICAL/ SURGICAL HISTORY: Hypertension/HFpEF CAD Bioprosthetic mitral valve Tricuspid valve repair Atrial fibrillation with failed ablation and subsequent pacemaker placement ORQUIDEA CPAP 5 cm of water SOCIAL HISTORY: Lives at home with her . Denies Tobacco use Occasional EtoH use No illicit drug use No recent travel or sick contacts FAMILY HISTORY: n/a ALLERGIES: Please see below. HOME MEDICATIONS: Please see below. PHYSICAL EXAMINATION: VITAL SIGNS: Please see below. GEN: well-nourished / well developed/ NAD INTEGUMENT: not flushed HEENT: EOMI CVS: RRR/NMRG/ radial and dorsalis pedis pulses intact / no lower extremity edema LUNGS: able to speak full sentences without stopping to take a breath lungs are clear to auscultation bilaterally on room air ABDOMEN: Contour ( obese,) / soft & not tender with palpation MSK/EXTREMITIES: NCAT / range of motion intact in all 4 extremities NEURO: CN 2-12 are grossly intact / speech is not dysarthric / strength is 5/5 PSYCH: alert and oriented to person place and time/ able to understand and follow all commands LABORATORY DATA: See below. IMAGING: Chest x-ray "IMPRESSION: Infiltrate right lung base." MICROBIOLOGY: Please see below. ASSESSMENT: Ms. Ojeda is an 85-year-old with a history of hypertension, HFpEF, CAD, bioprosthetic mitral valve, tricuspid valve repair, atrial fibrillation, pacemaker, and ORQUIDEA, who will be admitted for management of COVID associated pneumonia and ETHAN. PLAN: 1. COVID-19 Plan: admit to medical floor / continuous pulse ox / supplemental O2 up to 3L with target O2 sats between 92-95% / contact & air borne precautions / f/u repeat plts (if low indicates bad prognosis), CRP (if high indicates bad prognosis), INR, BMP, fibrinogen, INR, D-dimer, PT, PTT (if patient has DIC indicates bad prognosis), ferritin, LDH, troponins (if elevated will need Echo to r/o viral cardiomyopathy) / start abx for CAP pending procalcitonin, sputum cx, strep pneumo, legionella & mycoplasma, MRSA to r/o bacterial PNA / , she does not meet criteria for remdisivir or steroids 2.ETHAN Based on current literature, 40% of patients with Covid develop ETHAN Plan: monitor UOP / IVF / f/u renal panel, Ulytes for FENa or FEUrea / renal US / hold nephrotoxic drugs 3. Lactic acidosis. Likely due to dehydration. Plan: IV fluids, follow up repeat lactic acid and mendez cultures 4. Hypertension/HFpEF Plan: Furosemide, Lisinopril, Metoprolol 5 CAD Plan: Metoprolol,ASA& statin 6. Bioprosthetic mitral valve / Tricuspid valve repair Plan: Warfarin / f/u INR 7. Atrial fibrillation with failed ablation and subsequent pacemaker placement Plan: Digoxin / Warfarin 8. ORQUIDEA Plan: Own CPAP DVT PROPHYLAXIS: n/a on warfarin DISPOSITION: home after more than 2 midnight's stay Vital Signs Vital Signs Date Time Temp Pulse Resp B/P (MAP) Pulse Ox O2 Delivery O2 Flow Rate FiO2 07/25/20 20:45 64 18 135/67 (89) 94 Room Air 07/25/20 20:30 99.0 Laboratory Data Labs 24H Laboratory Tests 2 07/25/20 17:35: Immature Granulocyte % (Auto) 1.0, Neutrophils (%) (Auto) 77.5H, Lymphocytes (%) (Auto) 14.4L, Monocytes (%) (Auto) 5.8H, Eosinophils (%) (Auto) 0.8, Basophils (%) (Auto) 0.5, Neutrophils # (Auto) 4.8, Lymphocytes # (Auto) 0.9L, Monocytes # (Auto) 0.4, Eosinophils # (Auto) 0.1, Basophils # (Auto) 0.0, Nucleated Red Blood Cells % (auto) 0.0, Prothrombin Time 26.9H, Prothromb Time International Ratio 2.42, Fibrinogen 697H, D-Dimer, Quantitative 1845.78H, Lactic Acid Level 2.6*H 07/25/20 18:02: SARS Antigen (LFIA) POSITIVEH 07/25/20 18:24: Urine Color YELLOW, Urine Appearance HAZY, Urine pH 5.0, Urine Specific [place] 1.014, Urine Protein 2+H, Urine Glucose (UA) NEGATIVE, Urine Ketones NEGATIVE, Urine Blood 2+H, Urine Nitrite NEGATIVE, Urine Bilirubin NEGATIVE, Urine Urobilinogen 2.0H, Urine Leukocyte Esterase NEGATIVE, Urine WBC (Auto) 1, Urine RBC (Auto) 3, Urine Hyaline Casts (Auto) 4, Urine Bacteria (Auto) NEGATIVE, Urine Squamous Epithelial Cells 0, Urine Amorphous Sediment SMALLH, Urine Mucus (Auto) SMALL, Urine Sperm (Auto) 07/25/20 19:37: Anion Gap 7L, Glomerular Filtration Rate 38.7, Calcium Level 8.7L, Magnesium Level 1.8, Ferritin 1527H, Total Bilirubin 0.8, Aspartate Amino Transf (AST/SGOT) 240H, Alanine Aminotransferase (ALT/SGPT) 145H, Alkaline Phosphatase 153H, Lactate Dehydrogenase 488H, Total Creatine Kinase 124, Creatine Kinase MB 1.1, Creatine Kinase MB Relative Index 0.89, Troponin I 0.07, C-Reactive Protein, Quantitative 13.80H, LW-Apj-S-Type Natriuretic Peptide 683H, Total Protein 7.2, Albumin 2.9L, Albumin/Globulin Ratio 0.7L 07/25/20 20:20: CBC/BMP Laboratory Tests 07/25/20 17:35 07/25/20 19:37 Microbiology Microbiology 07/25/20 Blood Culture, Received Pending 07/25/20 Blood Culture, Received Pending Home Medications Scheduled Aspirin (Aspirin EC) 81 Mg Tab, 81 MG PO DAILY Bimatoprost (Lumigan) 50 Drop/2.5 Ml Tiffani, 1 DROP OU QHS Brimonidine Tartrate (Alphagan P) 0.15 % Tiffani, 1 DROP OU BID Digoxin (Digoxin) 250 Mcg Tab, 250 MCG PO DAILY Furosemide (Furosemide) 40 Mg Tab, 40 MG PO DAILY Lisinopril (Lisinopril) 5 Mg Tab, 5 MG PO QHS Magnesium Chloride (Mag64) 64 Mg Tabcr, 128 MG PO BID Metoprolol Succinate (Metoprolol Succinate) 50 Mg Tab, 50 MG PO DAILY Simvastatin (Zocor) 40 Mg Tab, 40 MG PO QHS Warfarin Sodium (Warfarin Sodium) 3 Mg Tablet, 3 MG PO QHS Allergies Coded Allergies: No Known Drug Allergies (Verified Allergy, Unknown, 07/25/20) A-FIB/CHADSVASC A-FIB History Current/History of A-Fib/PAF?: Yes Current PO Anticoag Therapy: Yes STEPHANIE PINEDA MD Jul 25, 2020 21:30
[2020-07-25] MEDS ORDERED: NS 1,000 ML IV SCH (21:31)
[2020-07-25 22:38] VITALS: BP 129/70
--- NOTE | 2020-07-25 22:40 | REPVR ---
PROCEDURE INFORMATION: Exam: US Retroperitoneal Limited, Kidneys Exam date and time: 07/25/2020 10:26 PM Age: 85 years old Clinical indication: Abnormal findings; Abnormal lab test; Abnormal kidney function lab tests; Additional info: Miles TECHNIQUE: Imaging protocol: Real-time ultrasound of the retroperitoneum with image documentation. Examination was focused on the kidneys. COMPARISON: No relevant prior studies available. FINDINGS: Right kidney: The right kidney measures 11.2 cm in its cephalocaudad dimension and 4.8 x 5.4 cm in diameter. No mass or hydronephrosis. There is a complex hypoechoic cyst or nodule in the lower pole measuring 2.7 x 2.4 x 3.9 cm. Left kidney: The left kidney measures 11.6 cm in its cephalocaudad dimension and 5.0 x 5.4 cm in diameter. No mass or hydronephrosis. There is a simple cyst in the upper pole measuring 4.5 x 4.1 x 2.9 cm and a lower pole simple cyst measuring 3.6 x 3.7 x 3.0 cm. Bladder: Empty urinary bladder. IMPRESSION: 1. Hypoechoic complex cyst or nodule in the lower right kidney measuring 2.4 x 3.9 x 2.9 cm. 2. Simple left renal cysts measuring up to 4.5 cm. 3. Otherwise negative renal sonogram. Electronically signed by: Saul Gee On 07/25/2020 22:40:10 PM
[2020-07-25] MEDS: DOXYCYCLINE HYCLATE 100 MG in D5W MINI-BAG PLUS 100 ML IV SCH (22:48)
[2020-07-25 23:20] VITALS: O2SAT 95
[2020-07-26] VITALS (8 sets, daily range): BP systolic 94–137; BP diastolic 48–60; O2SAT 84–96
[2020-07-26] MEDS ORDERED: VANCOMYCIN HCL 750 MG, VIAL MATE ADAPTER 1 EACH in D5W 250 ML IV ONE ×2 (02:00→03:00)
[2020-07-26] MEDS: DOXYCYCLINE HYCLATE 100 MG in D5W MINI-BAG PLUS 100 ML IV SCH ×2 (06:03→15:36)
[2020-07-26 06:49] LABS: HEMATOCRIT 36.9 % (36.0-47.0); HEMOGLOBIN 12.3 g/dl (12.0-15.5); MEAN CORPUSCULAR HEMOGLOBIN 31.7 pg (27.0-33.0); MEAN CORPUSCULAR HGB CONC 33.3 g/dl (32.0-36.5); MEAN CORPUSCULAR VOLUME 95.1 fl (80.0-96.0); PLATELET COUNT, AUTOMATED 232 10^3/uL (150-450); RED BLOOD COUNT 3.88 10^6/uL (4.00-5.40); WHITE BLOOD COUNT 4.8 10^3/uL (4.0-10.0)
[2020-07-26 07:05] LABS: INR 2.29; PROTHROMBIN TIME 25.7 SECONDS (12.5-14.3)
[2020-07-26 07:07] LABS: ATYPICAL LYMPH 2 % (0-5); BASOPHILS 2 % (0-1); EOSINOPHILS 6 % (0-3); LYMPHOCYTES 24 % (16-44); MONOCYTES 1 % (0-5); NEUTROPHILS 61 % (28-66); PLATELET ESTIMATE NORMAL (NORMAL)
[2020-07-26 07:33] LABS: CALCIUM LEVEL 8.2 MG/DL (8.8-10.2); CREATININE FOR GFR 1.22 MG/DL (0.55-1.30); GLOMERULAR FILTRATION RATE 44.6 (>32); MAGNESIUM LEVEL 1.7 MG/DL (1.8-2.4); POTASSIUM SERUM 3.2 MEQ/L (3.5-5.1)
[2020-07-26] MEDS: MAG SULF 1GM/100ML (MAG RUN) 1 GM in IV 1 EA IV SCH ×2 (08:36→11:34)
[2020-07-26] MEDS ORDERED: FUROSEMIDE 40 MG TAB PO SCH (09:00)
[2020-07-26] MEDS ORDERED: ASPIRIN 81 MG ENTERIC TAB PO SCH (09:00)
[2020-07-26] MEDS ORDERED: DIGOXIN 0.25 MG TAB PO SCH (09:00)
[2020-07-26] MEDS ORDERED: BRIMONIDINE 0.15% OPHTH SOLN 5 ML OU SCH (09:00)
[2020-07-26] MEDS ORDERED: METOPROLOL SUCC (TopROL XL) 50MG **XL** TAB PO SCH (09:00)
[2020-07-26] MEDS ORDERED: POTASSIUM CHLORIDE 10 MEQ SR TABLET PO ONE (09:00)
[2020-07-26 09:24] LABS: ALBUMIN 2.6 GM/DL (3.2-5.2); BILIRUBIN,DIRECT 0.3 MG/DL (0.0-0.2); BILIRUBIN,TOTAL 0.6 MG/DL (0.2-1.0); TOTAL PROTEIN 6.5 GM/DL (6.4-8.2); TROPONIN I 0.05 NG/ML (< 0.10)
[2020-07-26 09:55] LABS: PARTIAL THROMBOPLASTIN TIME 74.5 SECONDS (24.2-38.5)
[2020-07-26 09:57] LABS: D-DIMER QUANT 1444.91 ng/ml (<500)
--- NOTE | 2020-07-26 15:55 | REP ---
INDICATION: transaminitis. COMPARISON: None. TECHNIQUE: Right upper quadrant sonography. FINDINGS: Scanning through the right upper quadrant of the abdomen demonstrates a normal sized, thin-walled gallbladder without evidence of stone or polyp. Common bile duct is normal measuring 0.4 cm in greatest diameter. No focal liver lesion is seen. Liver size is normal. No pancreatic abnormality is observed. No right renal abnormality is seen. There is no evidence of ascites. The right kidney measures 10.3 x 4.3 x 4.5 cm. There is a 0.8 cm cyst and a 2.5 cm cyst noted in the right kidney. These are noted in the upper and lower pole respectively. IMPRESSION: 2 small cysts are noted in the right kidney. Otherwise negative right upper quadrant sonogram.. <Electronically signed by Ramses Cordon > 07/26/20 1060
[2020-07-26] MEDS ORDERED: VANCOMYCIN HCL 1,000 MG, VIAL MATE ADAPTER 1 EACH in D5W 250 ML IV SCH (16:00)
[2020-07-26] MEDS ORDERED: DOXY-350 PO (16:19)
[2020-07-26] MEDS ORDERED: ACET1TAB55 PO (16:19)
--- NOTE | 2020-07-26 16:19 | DS.PDOC ---
Discharge Summary General Date of Admission Jul 25, 2020 at 19:47 Date of Discharge 07/26/20 Discharge Summary PROCEDURES PERFORMED DURING STAY: [None]. ADMITTING DIAGNOSES: Covid-19 ETHAN Lactic acidosis HTN HFpEF CAD Bioprosthetic mitral valve Tricuspid valve repair AFib ORQUIDEA DISCHARGE DIAGNOSES: Covid-19 CAP Hypokalemia Hypomagnesemia ETHAN Lactic acidosis HTN HFpEF CAD Bioprosthetic mitral valve Tricuspid valve repair AFib ORQUIDEA COMPLICATIONS/CHIEF COMPLAINT: Pneumonia Due To Covid 19 Virus. HISTORY OF PRESENT ILLNESS: This 85-year-old female's is admitted to the hospital for treatment of Covid. Today she presented with complaints of coughing for a couple of days, and fever as high as 101.4. She denied having chills, nausea, vomiting, muscle aches, or shortness of breath. HOSPITAL COURSE: 1. COVID-19 Patient was given dexamethasone, lovenox for DVT prophylaxis for covid at 0.5 mg/kg/q12h , and started on vancomycin and doxycycline for suspect CAP superimposed on COVID-19. She was saturating 97% on RA and was deemed safe for DC with home services from PT standpoint. Patient was stable on DC, and will complete 7 days of doxycycline therapy and 7 days of dexamethasone. 2.ETHAN Resolved with IVF 3. Lactic acidosis. Resolved. Prelim cultures negative. 4. Hypertension/HFpEF Furosemide, Lisinopril, Metoprolol 5 CAD Plan: Metoprolol,ASA& statin 6. Bioprosthetic mitral valve / Tricuspid valve repair Plan: Warfarin / f/u INR 7. Atrial fibrillation with failed ablation and subsequent pacemaker placement Plan: Digoxin / Warfarin 8. ORQUIDEA Plan: Own CPAP DISCHARGE MEDICATIONS: Please see below. ALLERGIES: Please see below. PHYSICAL EXAMINATION ON DISCHARGE: VITAL SIGNS: Please see below. GENERAL: comfortable HEENT: PERRLA CARDIOVASCULAR EXAMINATION: RRR, normal S1, S2 RESPIRATORY EXAMINATION: mildy reduced air entry b/l, no wheezes, no rales, no crackles ABDOMINAL EXAMINATION: soft, non tender, non distended EXTREMITIES: no edema SKIN: warm, dry NEUROLOGICAL EXAMINATION: moving all 4 extremities, no focal neuro deficits LABORATORY DATA: Please see below. IMAGING: Liver (US (07/26/20): 2 small cysts are noted in the right kidney. Otherwise negative right upper quadrant sonogram. Renal US (07/25/20): 1. Hypoechoic complex cyst or nodule in the lower right kidney measuring 2.4 x 3.9 x 2.9 cm. 2. Simple left renal cysts measuring up to 4.5 cm. 3. Otherwise negative renal sonogram. CXR (07/25/20): FINDINGS: Infiltrates are seen in the right lower lung zone. The left lung demonstrates no definite infiltrate. There is cardiomegaly. There multiple sternal wires as well as a prosthetic heart valve and a 2 lead pacemaker. IMPRESSION: Infiltrate right lung base. PROGNOSIS: good ACTIVITY: RW. Home PT. Family to assist DIET: 2G DISCHARGE PLAN: DC home with services. Complete 7 day course of doxycycline. Complete 7 days of dexamethasone. Close PCP follow up. Quarantine 10 days in compliance with [facility] Public Health Guidelines. DISPOSITION: DC home with services DISCHARGE INSTRUCTIONS: - follow up with PCP 3-5 days - please take medications as prescribed - if you developed worsening shortness of breath, chest pain, fevers or otherwise worsening of your symptoms, please call 911 or return to the emergency room. ITEMS TO FOLLOWUP ON ON OUTPATIENT: final cultures, pneumonia antigen DISCHARGE CONDITION: [Stable]. TIME SPENT ON DISCHARGE:35 minutes Vital Signs/I&Os Vital Signs Date Time Temp Pulse Resp B/P (MAP) Pulse Ox O2 Delivery O2 Flow Rate FiO2 07/26/20 13:15 92 Nasal Cannula 2.0 07/26/20 08:38 59 07/26/20 08:37 94/48 07/26/20 07:57 97.9 18 I&O- Last 24 Hours up to 6 AM 07/26/20 06:00 Intake Total 1180 ml Output Total 200 ml Balance 980 ml Laboratory Data Labs 24H Laboratory Tests 2 07/25/20 17:35: Immature Granulocyte % (Auto) 1.0, Neutrophils (%) (Auto) 77.5H, Lymphocytes (%) (Auto) 14.4L, Monocytes (%) (Auto) 5.8H, Eosinophils (%) (Auto) 0.8, Basophils (%) (Auto) 0.5, Neutrophils # (Auto) 4.8, Lymphocytes # (Auto) 0.9L, Monocytes # (Auto) 0.4, Eosinophils # (Auto) 0.1, Basophils # (Auto) 0.0, Nucleated Red Blood Cells % (auto) 0.0, Prothrombin Time 26.9H, Prothromb Time International Ratio 2.42, Fibrinogen 697H, D-Dimer, Quantitative 1845.78H, Lactic Acid Level 2.6*H 07/25/20 18:02: SARS Antigen (LFIA) POSITIVEH 07/25/20 18:24: Urine Color YELLOW, Urine Appearance HAZY, Urine pH 5.0, Urine Specific [place] 1.014, Urine Protein 2+H, Urine Glucose (UA) NEGATIVE, Urine Ketones NEGATIVE, Urine Blood 2+H, Urine Nitrite NEGATIVE, Urine Bilirubin NEGATIVE, Urine Urobilinogen 2.0H, Urine Leukocyte Esterase NEGATIVE, Urine WBC (Auto) 1, Urine RBC (Auto) 3, Urine Hyaline Casts (Auto) 4, Urine Bacteria (Auto) NEGATIVE, Urine Squamous Epithelial Cells 0, Urine Amorphous Sediment SMALLH, Urine Mucus (Auto) SMALL, Urine Sperm (Auto) 07/25/20 19:37: Anion Gap 7L, Glomerular Filtration Rate 38.7, Uric Acid 9.0H, Calcium Level 8.7L, Magnesium Level 1.8, Ferritin 1527H, Total Bilirubin 0.8, Aspartate Amino Transf (AST/SGOT) 240H, Alanine Aminotransferase (ALT/SGPT) 145H, Alkaline Phos phatase 153H, Lactate Dehydrogenase 488H, Total Creatine Kinase 124, Creatine Kinase MB 1.1, Creatine Kinase MB Relative Index 0.89, Troponin I 0.07, C- Reactive Protein, Quantitative 13.80H, WN-Qgv-B-Type Natriuretic Peptide 683H, Total Protein 7.2, Albumin 2.9L, Albumin/Globulin Ratio 0.7L 07/25/20 20:20: 07/25/20 22:54: Lactic Acid Followup at 4 Hours 1.6 07/26/20 06:29: Neutrophils (%) (Auto) , Nucleated Red Blood Cells % (auto) 0.0, Neutrophils 61, Band Neutrophils 4, Lymphocytes (Manual) 24, Monocytes (Manual) 1, Eosinophils (Manual) 6H, Basophils (Manual) 2H, Atypical Lymphocytes 2, Red Blood Cell Morphology NORMAL, Platelet Estimate NORMAL, Prothrombin Time 25.7H, Prothromb Time International Ratio 2.29, Activated Partial Thromboplast Time 74.5H, Fibrinogen 718H, D-Dimer, Quantitative 1444.91H, Anion Gap 9, Glomerular Filtration Rate 44.6, Calcium Level 8.2L, Magnesium Level 1.7L, Total Bilirubin 0.6, Direct Bilirubin 0.3H, Aspartate Amino Transf (AST/SGOT) 133H, Alanine Aminotransferase (ALT/SGPT) 117H, Alkaline Phosphatase 126H, Troponin I 0.05#, Total Protein 6.5, Albumin 2.6L, Albumin/Globulin Ratio 0.7L 07/26/20 10:52: Methicillin-Resist S.aureus DNA PCR NOT DETECTED CBC/BMP Laboratory Tests 07/25/20 17:35 07/25/20 19:37 07/26/20 06:29 Microbiology Microbiology 07/25/20 Blood Culture, Received Pending 07/25/20 Blood Culture, Received Pending Discharge Medications Scheduled Aspirin (Aspirin EC) 81 Mg Tab, 81 MG PO DAILY, (Reported) Bimatoprost (Lumigan) 50 Drop/2.5 Ml Tiffani, 1 DROP OU QHS, (Reported) Brimonidine Tartrate (Alphagan P) 0.15 % Tiffani, 1 DROP OU BID, (Reported) Dexamethasone (Dexamethasone) 6 Mg Tablet, 6 MG PO ONCE Digoxin (Digoxin) 250 Mcg Tab, 250 MCG PO DAILY, (Reported) Doxycycline Monohydrate (Doxycycline) 100 Mg Capsule, 1 CAP PO BID Furosemide (Furosemide) 40 Mg Tab, 40 MG PO DAILY, (Reported) Lisinopril (Lisinopril) 5 Mg Tab, 5 MG PO QHS, (Reported) Magnesium Chloride (Mag64) 64 Mg Tabcr, 128 MG PO BID, (Reported) Metoprolol Succinate (Metoprolol Succinate) 50 Mg Tab, 50 MG PO DAILY, (Repor faizan) Potassium Chloride (Potassium Chloride) 20 Meq Tab.er.prt, 1 TAB PO DAILY Simvastatin (Zocor) 40 Mg Tab, 40 MG PO QHS, (Reported) Warfarin Sodium (Warfarin Sodium) 3 Mg Tablet, 3 MG PO QHS, (Reported) Scheduled PRN Acetaminophen (Acetaminophen) 325 Mg Tablet, 650 MG PO Q4H PRN for PAIN OR FEVER Allergies Coded Allergies: No Known Drug Allergies (Verified Allergy, Unknown, 07/25/20) LORENZO BAE MD Jul 26, 2020 16:19
[2020-07-26] MEDS ORDERED: POTA20TA6 PO (16:21)
[2020-07-26] MEDS ORDERED: DEXA6TAB PO (16:51)
[2020-07-26] MEDS ORDERED: WARFARIN SOD 3MG TAB PO SCH (17:00)
[2020-07-26] MEDS ORDERED: ENOXAPARIN 40MG/0.4ML SYRINGE (J1650 PER 10MG) SC SCH (21:00)
[2020-07-26] MEDS ORDERED: lisinopriL 5 MG TAB PO SCH (21:00)
[2020-07-26] MEDS ORDERED: SIMVASTATIN 40 MG TAB PO SCH (21:00)
[2020-07-27 16:08] LABS: MYCOPLASMA PNEUMONIAE IgG 555 U/mL (0-99); MYCOPLASMA PNEUMONIAE IgM 1275 U/mL (0-769)
== END 2020-07-26 17:30 | disposition home health service (06) ==
LOC: M ED 17:20 → M ED INP 17:21 → INTOOBSV 19:47 → UNDOADMOB 19:47 → M ED INP 19:47 → M 4MAIN 22:29 → UNDODISOB 07-26 17:30
PROVIDERS: ADMIT Internal Medicine; ATTEND Internal Medicine
DX: U07.1 COVID-19 (principal); J12.82 Pneumonia due to coronavirus disease 2019; N17.9 Acute kidney failure, unspecified; I50.32 Chronic diastolic (congestive) heart failure; E87.2 Acidosis; I48.91 Unspecified atrial fibrillation; Z79.01 Long term (current) use of anticoagulants; Z79.899 Other long term (current) drug therapy; Z79.82 Long term (current) use of aspirin; I25.10 Atherosclerotic heart disease of native coronary artery without angina pectoris; I11.0 Hypertensive heart disease with heart failure; Z95.0 Presence of cardiac pacemaker; G47.33 Obstructive sleep apnea (adult) (pediatric); Z95.2 Presence of prosthetic heart valve; E87.6 Hypokalemia; E83.42 Hypomagnesemia
CPT/HCPCS: 36415; 51701; 71045; 76705; 76775; 80048; 80053; 80076; 81001; 82550; 82553; 82728; 83605; 83615; 83735; 83880; 84484; 84550; 85025; 85379; 85384; 85610; 85730; 86140; 86738; 87040; 87641; 93005; 93041; 94760; 96361; 96365; 96366; 96367; 96372; 97161; 97530; 99285; G0378; J0696; J1650; J3370; J3475